=== PATIENT | female | born 1950 | race Caucasian/White ===

== ENCOUNTER 2023-05-17 19:30 | Inpatient (IN) | payer MEDICARE ==
[~2023-05-17] VITALS: Ht 167.6 cm; Wt 60.3 kg
[2023-05-17] MEDS ORDERED: MAGNESIUM HYDROXIDE 30 ML UDC PO PRN (22:00)
[2023-05-17] MEDS: BLOOD SUGAR DIAGNOSTIC 1 EACH STRIP IN ONE (22:00)
[2023-05-17] MEDS ORDERED: MAG HYDROX/AL HYDROX/SIMETH 30 ML UDC PO PRN (22:00)
[2023-05-17] MEDS ORDERED: SIMV-46 PO (22:16)
[2023-05-17] MEDS ORDERED: LEVO137T2 PO (22:16)
[2023-05-17] MEDS ORDERED: DULO60CA64 PO (22:16)
[2023-05-17] MEDS ORDERED: ALPR1TAB7 PO (22:16)
[2023-05-17] MEDS ORDERED: GABA-532 PO (22:16)
[2023-05-17] MEDS ORDERED: DEXT20TA6 PO (22:16)
[2023-05-17] MEDS ORDERED: TRAZ-257 PO (22:16)
[2023-05-17 23:42] VITALS: BP 154/66; TEMP 98.1
[2023-05-18] MEDS: LORAZEPAM 0.5 MG TABLET PO PRN (04:23)
[2023-05-18 07:32] LABS: CREATININE 1.5 mg/dL (0.6-1.3)
[2023-05-18 07:37] LABS: CALCIUM, SERUM 9.1 mg/dL (8.5-10.1); CARBON DIOXIDE 22 mmol/L (21-32); CHLORIDE 103 mmol/L (98-107); CREATININE 1.4 mg/dL (0.6-1.3); GLUCOSE 113 mg/dL (74-106); POTASSIUM 4.5 mmol/L (3.5-5.1); SODIUM SERUM 135 mmol/L (136-145); UREA NITROGEN, BLOOD 16 mg/dL (7-18)
[2023-05-18 07:43] LABS: CHOLESTEROL 172 mg/dL (<200); HDL CHOLESTEROL 73 mg/dL (40-60); LDL 74 mg/dL (0-99); TRIGLYCERIDES 76 mg/dL (30-150)
[2023-05-18 08:00] VITALS: BP 136/90; TEMP 98.6; O2SAT 97
[2023-05-18] MEDS ORDERED: ESCI10TA PO (08:19)
[2023-05-18] MEDS ORDERED: FERR325T28 GT (08:19)
[2023-05-18] MEDS ORDERED: CALC-770 PO (08:19)
[2023-05-18] MEDS ORDERED: [UNRECOGNIZED DRUG - OTHER] MT SCH (09:00)
[2023-05-18] MEDS ORDERED: AMPHET ASP MT SCH (09:00)
[2023-05-18] MEDS ORDERED: D AMPHET MT SCH (09:00)
[2023-05-18] MEDS ORDERED: AMPHET MT SCH (09:00)
[2023-05-18] MEDS: LEVOTHYROXINE SODIUM 137 MCG TABLET PO SCH (09:23)
[2023-05-18] MEDS: GABAPENTIN 100 MG CAPSULE PO SCH (09:23)
[2023-05-18] MEDS: DULOXETINE HCL 30 MG CAPSULE.DR PO SCH (12:43)
[2023-05-18 16:00] VITALS: BP 145/85; TEMP 98.6; O2SAT 100
[2023-05-18] MEDS: SIMVASTATIN 20 MG TABLET PO SCH (17:34)
[2023-05-18 21:24] VITALS: BP 109/88; TEMP 98.2; O2SAT 98
[2023-05-18] MEDS: TEMAZEPAM 7.5 MG CAPSULE PO PRN (21:33)
[2023-05-19 08:00] VITALS: BP 144/80; TEMP 98.1; O2SAT 97
[2023-05-19 16:00] VITALS: BP 132/79; TEMP 98.4; O2SAT 98
[2023-05-19 20:26] VITALS: BP 145/85; TEMP 98.8; O2SAT 97
[2023-05-20 04:05] LABS: APPEARANCE,URINE CLEAR (CLEAR); BILIRUBIN,URINE NEGATIVE (NEGATIVE); BLOOD, URINE NEGATIVE Ery/uL (NEGATIVE); COLOR,URINE YELLOW (YELLOW); KETONES,URINE NEGATIVE (NEGATIVE); LEUKOCYTE ESTERASE ,URINE TRACE (NEGATIVE); NITRITE, URINE NEGATIVE (NEGATIVE); PROTEIN,URINE TRACE mg/dl (NEGATIVE); UGLUCOSE NEGATIVE (NEGATIVE); UROBILINOGEN,URINE 0.2 EU/dL (0.2)
[2023-05-20 04:08] LABS: ADD URINE CULTURE NO; BACTERIA,URINE Rare /HPF (None Seen); RBC,URINE 0-2 /HPF (0-2); SQUAMOUS EPITHELIAL CELL,UR Few /HPF (None Seen)
[2023-05-20 04:16] LABS: CREATININE, URINE 89.1 MG/DL (30.0-125.0); URINE TOTAL PROTEIN 41.5 mg/dL (0-11.9)
[2023-05-20 04:25] LABS: EOSINOPHIL,URINE None Seen
[2023-05-20 08:00] VITALS: BP 144/64; TEMP 98.6; O2SAT 100
[2023-05-20 10:42] LABS: ALANINE AMINOTRANSFERASE 14 U/L (12-78); ALBUMIN 3.5 g/dL (3.4-5.0); ALKALINE PHOSPHATASE 101 U/L (46-116); ASPARTATE AMINOTRANSFERASE 13 U/L (15-37); BILIRUBIN,TOTAL 0.4 mg/dL (0.2-1.0); CARBON DIOXIDE 28 mmol/L (21-32); CHLORIDE 106 mmol/L (98-107); CREATININE 1.7 mg/dL (0.6-1.3); GLUCOSE 173 mg/dL (74-106); MAGNESIUM 2.2 mg/dL (1.8-2.4); PHOSPHORUS 3.3 mg/dL (2.5-4.9); POTASSIUM 3.2 mmol/L (3.5-5.1); SODIUM SERUM 139 mmol/L (136-145); TOTAL PROTEIN, SERUM 7.1 g/dL (6.4-8.2); UREA NITROGEN, BLOOD 24 mg/dL (7-18)
[2023-05-20 10:54] LABS: THYROID STIMULATING HORMONE 4.277 uIU/mL (0.358-3.74)
[2023-05-20 11:16] LABS: SERUM AMMONIA < 10 umol/L (11-32)
[2023-05-20 11:22] LABS: CREATINE KINASE, TOTAL 164 U/L (26-192)
[2023-05-20 11:59] LABS: BASOPHILS % (AUTO) 0.4 % (0.0-2.0); EOSINOPHILS # (AUTO) 0.1 K/uL (0.0-0.7); HEMATOCRIT 37 % (33-45); HEMOGLOBIN 12.6 g/dL (11.5-14.8); LYMPHOCYTES # (AUTO) 1.5 K/uL (0.8-4.8); MEAN CORPUSCULAR HEMOGLOBIN 32 PG (26.0-33.0); MEAN CORPUSCULAR HGB CONC 34 g/dl (31.0-36.0); MEAN CORPUSCULAR VOLUME 92 fL (82-100); MONOCYTES # (AUTO) 0.4 K/uL (0.1-1.30); MONOCYTES % (AUTO) 7.5 % (2.0-12.0); NEUTROPHILS # (AUTO) 3.5 K/uL (1.8-8.9); NEUTROPHILS % (AUTO) 63.1 % (43.0-81.0); PLATELET COUNT (AUTO) 308 K/uL (150-450); RED BLOOD CELL COUNT(AUTO) 3.97 MIL/uL (4.0-5.2); WHITE BLOOD COUNT (AUTO) 5.5 K/uL (4.3-11.0)
[2023-05-20 16:00] VITALS: BP 117/78; TEMP 98.8; O2SAT 99
[2023-05-20 20:00] VITALS: BP 160/89; TEMP 98.5; O2SAT 96
[2023-05-21 06:07] LABS: FOLIC ACID 7.4 ng/mL (>3.0); PTH, INTACT 92 pg/mL (15-65)
[2023-05-21 08:00] VITALS: BP 137/63; TEMP 98.6; O2SAT 98
[2023-05-21 10:07] LABS: *SPE A/G RATIO 1.1 (0.7-1.7); *SPE ALBUMIN 3.4 g/dL (2.9-4.4); *SPE ALPHA-1-GLOBULIN 0.3 g/dL (0.0-0.4); *SPE ALPHA-2-GLOBULIN 0.7 g/dL (0.4-1.0); *SPE BETA GLOBULIN 0.8 g/dL (0.7-1.3); *SPE GLOBULIN, TOTAL 3.1 g/dL (2.2-3.9); *SPE M-SPIKE Not Observed g/dL (Not Observed); *SPE PROTEIN TOTAL 6.5 g/dL (6.0-8.5); *SPEGAMMA GLOBULIN 1.3 g/dL (0.4-1.8)
[2023-05-21] MEDS: CYANOCOBALAMIN 500 MCG TABLET PO SCH (11:39)
[2023-05-21 16:00] VITALS: BP 134/76; TEMP 98.1; O2SAT 100
[2023-05-21 20:00] VITALS: BP 155/91; TEMP 98.1; O2SAT 99
[2023-05-22 07:08] LABS: BASOPHILS % (AUTO) 0.5 % (0.0-2.0); EOSINOPHILS # (AUTO) 0.1 K/uL (0.0-0.7); EOSINOPHILS % (AUTO) 1.1 % (0.0-6.0); HEMATOCRIT 38 % (33-45); HEMOGLOBIN 12.8 g/dL (11.5-14.8); LYMPHOCYTES # (AUTO) 2.3 K/uL (0.8-4.8); MEAN CORPUSCULAR HEMOGLOBIN 31 PG (26.0-33.0); MEAN CORPUSCULAR HGB CONC 34 g/dl (31.0-36.0); MEAN CORPUSCULAR VOLUME 93 fL (82-100); MONOCYTES # (AUTO) 0.5 K/uL (0.1-1.30); MONOCYTES % (AUTO) 6.6 % (2.0-12.0); NEUTROPHILS # (AUTO) 4.9 K/uL (1.8-8.9); NEUTROPHILS % (AUTO) 62.8 % (43.0-81.0); PLATELET COUNT (AUTO) 331 K/uL (150-450); RED BLOOD CELL COUNT(AUTO) 4.11 MIL/uL (4.0-5.2); WHITE BLOOD COUNT (AUTO) 7.8 K/uL (4.3-11.0)
[2023-05-22 07:23] LABS: ALANINE AMINOTRANSFERASE 14 U/L (12-78); ALBUMIN 3.5 g/dL (3.4-5.0); ALKALINE PHOSPHATASE 94 U/L (46-116); ASPARTATE AMINOTRANSFERASE 13 U/L (15-37); BILIRUBIN,TOTAL 0.7 mg/dL (0.2-1.0); CALCIUM, SERUM 9.1 mg/dL (8.5-10.1); CARBON DIOXIDE 22 mmol/L (21-32); CHLORIDE 105 mmol/L (98-107); CREATININE 1.5 mg/dL (0.6-1.3); GLUCOSE 114 mg/dL (74-106); MAGNESIUM 2.2 mg/dL (1.8-2.4); PHOSPHORUS 4.1 mg/dL (2.5-4.9); POTASSIUM 4.1 mmol/L (3.5-5.1); SODIUM SERUM 139 mmol/L (136-145); TOTAL PROTEIN, SERUM 7.1 g/dL (6.4-8.2); UREA NITROGEN, BLOOD 28 mg/dL (7-18)
[2023-05-22 08:00] VITALS: BP_SYST 136; BP_DIAS 68; BP_DIAS 88; TEMP 98; O2SAT 99
[2023-05-22 16:00] VITALS: BP 131/77; TEMP 98; O2SAT 97
[2023-05-22] MEDS: ACETAMINOPHEN 325 MG TABLET PO PRN (17:07)
[2023-05-22 20:00] VITALS: BP 144/89; TEMP 98.5; O2SAT 97
[2023-05-23 08:00] VITALS: BP 124/58; TEMP 98.6; O2SAT 96
[2023-05-23 11:50] LABS: ALANINE AMINOTRANSFERASE 17 U/L (12-78); ALBUMIN 3.5 g/dL (3.4-5.0); ALKALINE PHOSPHATASE 90 U/L (46-116); ASPARTATE AMINOTRANSFERASE 13 U/L (15-37); BILIRUBIN,TOTAL 0.6 mg/dL (0.2-1.0); CALCIUM, SERUM 8.9 mg/dL (8.5-10.1); CARBON DIOXIDE 25 mmol/L (21-32); CHLORIDE 105 mmol/L (98-107); CREATININE 1.7 mg/dL (0.6-1.3); GLUCOSE 112 mg/dL (74-106); SODIUM SERUM 139 mmol/L (136-145); UREA NITROGEN, BLOOD 29 mg/dL (7-18)
[2023-05-23 16:00] VITALS: BP 130/83; TEMP 98.1; O2SAT 96
[2023-05-23 20:57] VITALS: BP 155/75; TEMP 98.6; O2SAT 99
[2023-05-24 08:00] VITALS: BP 127/71; TEMP 98; O2SAT 100
[2023-05-24 08:44] LABS: ALANINE AMINOTRANSFERASE 12 U/L (12-78); ALBUMIN 2.8 g/dL (3.4-5.0); ALKALINE PHOSPHATASE 73 U/L (46-116); ASPARTATE AMINOTRANSFERASE 11 U/L (15-37); BILIRUBIN,TOTAL 0.6 mg/dL (0.2-1.0); CALCIUM, SERUM 8.5 mg/dL (8.5-10.1); CARBON DIOXIDE 24 mmol/L (21-32); CHLORIDE 109 mmol/L (98-107); CREATININE 1.5 mg/dL (0.6-1.3); GLUCOSE 103 mg/dL (74-106); POTASSIUM 4.1 mmol/L (3.5-5.1); SODIUM SERUM 140 mmol/L (136-145); TOTAL PROTEIN, SERUM 5.9 g/dL (6.4-8.2); UREA NITROGEN, BLOOD 28 mg/dL (7-18)
== END 2023-05-24 13:30 | DRG 885 ==
LOC: GPS 21:19
PROVIDERS: ADMIT Psychiatry & Neurology Psychosomatic Medicine; ATTEND Nurse Practitioner Acute Care
DX: F39 Unspecified mood [affective] disorder (principal); U07.1 COVID-19; N17.0 Acute kidney failure with tubular necrosis; N18.9 Chronic kidney disease, unspecified; E87.1 Hypo-osmolality and hyponatremia; F29 Unspecified psychosis not due to a substance or known physiological condition; F32.A Depression, unspecified; F41.9 Anxiety disorder, unspecified; E03.9 Hypothyroidism, unspecified; E78.5 Hyperlipidemia, unspecified; M79.7 Fibromyalgia; I12.9 Hypertensive chronic kidney disease with stage 1 through stage 4 chronic kidney disease, or unspecified chronic kidney disease; E88.9 Metabolic disorder, unspecified; F19.10 Other psychoactive substance abuse, uncomplicated; R41.9 Unspecified symptoms and signs involving cognitive functions and awareness
CPT/HCPCS: 36415; 70450-TC; 76770-TC; 80048-TC; 80053-TC; 80061-TC; 81001; 82140-TC; 82550-TC; 82565-TC; 82570-TC; 82607-TC; 82962-TC; 83735-TC; 83921; 83970; 84100-TC; 84155; 84165; 84300-TC; 84439-TC; 84443-TC; 85025-TC